=== PATIENT | male | born 1950 | race Caucasian/White ===

== ENCOUNTER 2018-05-22 11:57 | Outpatient (CLI) | payer MEDICARE | END 2018-05-22 11:58 | disposition home or self-care (01) | LOC: BICRAD 11:57 | PROVIDERS: ATTEND Internal Medicine Medical Oncology | DX: D47.2 Monoclonal gammopathy (principal) | CPT/HCPCS: 77075 ==

== ENCOUNTER 2018-12-11 10:07 | Outpatient (CLI) | payer MEDICARE ==
--- NOTE | 2018-12-11 11:20 | RAD ---
SKELETAL SURVEY: HISTORY: Monoclonal gammopathy. FINDINGS: Lateral view chest, AP and lateral views cervical spine, AP and lateral views thoracic spine, AP and lateral views lumbar spine, AP view of upper and lower extremities excluding the hand and feet. Skeletal survey demonstrates no definite evidence of large lytic lesions. The skull radiograph has a normal appearance for a patient of this age. Degenerative changes with changes of spondylosis are s een at C4-5 and C5-6. The rest of the cervical, thoracic, lumbar spine, pelvis, and upper and lower extremities demonstrate no definite evidence of masses or lesions. POS: [facility]
== END 2018-12-11 10:08 | disposition home or self-care (01) ==
LOC: BICRAD 10:07
PROVIDERS: ATTEND Internal Medicine Medical Oncology
DX: D47.2 Monoclonal gammopathy (principal)
CPT/HCPCS: 36415; 77075; 80053; 82232; 83883; 84165

== ENCOUNTER 2020-07-14 11:04 | Outpatient (CLI) | payer MEDICARE ==
--- NOTE | 2020-07-14 11:29 | RAD ---
XR Hip Rt 2-3 View INDICATION: History of myeloma and right hip pain COMPARISON: Whole body bone survey dated March 02, 2020 FINDINGS: Bones: No large osteolytic lesion is grossly evident. No acute fracture is demonstrated. Hip joint: There is mild osteoarthrosis of the right hip. SI joints and symphysis pubis: Radiographically normal. Intrapelvic contents: Small phleboliths are seen within the lower right hemipelvis. Surrounding soft tissues: Radiographically normal. IMPRESSION: 1. No acute osseous abnormality.
== END 2020-07-14 11:05 | disposition home or self-care (01) ==
LOC: BICRAD 11:04
PROVIDERS: ATTEND Internal Medicine Medical Oncology
DX: C90.00 Multiple myeloma not having achieved remission (principal); M25.551 Pain in right hip

== ENCOUNTER 2024-09-21 08:00 | Outpatient (CLI) | payer MEDICARE | END 2024-09-21 08:01 | disposition home or self-care (01) | LOC: PET 08:00 | PROVIDERS: ATTEND Internal Medicine | DX: C90.00 Multiple myeloma not having achieved remission (principal); C79.51 Secondary malignant neoplasm of bone; N18.30 Chronic kidney disease, stage 3 unspecified; G62.0 Drug-induced polyneuropathy; M89.9 Disorder of bone, unspecified; R94.8 Abnormal results of function studies of other organs and systems; Z87.39 Personal history of other diseases of the musculoskeletal system and connective tissue | CPT/HCPCS: 78815; A9552 ==

== ENCOUNTER 2024-10-26 09:20 | Outpatient (CLI) | payer MEDICARE | END 2024-10-26 09:21 | disposition home or self-care (01) | LOC: BICMAMMO 09:20 | PROVIDERS: ATTEND Internal Medicine | DX: N18.30 Chronic kidney disease, stage 3 unspecified (principal); C90.00 Multiple myeloma not having achieved remission; C79.51 Secondary malignant neoplasm of bone; G62.0 Drug-induced polyneuropathy; M85.88 Other specified disorders of bone density and structure, other site | CPT/HCPCS: 77080 ==

== ENCOUNTER 2025-09-28 11:45 | Outpatient (CLI) | payer MEDICARE, OTHER | END 2025-09-28 11:46 | disposition home or self-care (01) | LOC: PET 11:45 | PROVIDERS: ATTEND Internal Medicine | DX: C79.51 Secondary malignant neoplasm of bone (principal); N18.30 Chronic kidney disease, stage 3 unspecified; C90.00 Multiple myeloma not having achieved remission; G62.0 Drug-induced polyneuropathy; C80.1 Malignant (primary) neoplasm, unspecified; M89.9 Disorder of bone, unspecified | CPT/HCPCS: 78815; A9552 ==